=== PATIENT | female | born 1955 | race Caucasian/White ===

== ENCOUNTER → 2017-10-20 07:57 | Outpatient (CLI) | payer OTHER, SELFPAY ==
--- NOTE | 2017-10-20 08:00 | HPBI_ITS ---
MAMMOGRAPHY - BILATERAL SCREENING REASON FOR EXAM: Female, 62 years old. Routine annual screening examination. PERTINENT HISTORY: Non-contributory. TECHNIQUE: Digital bilateral breast zee (3D mammographic acquisition) in the CC and MLO projections. 2-D mediolateral oblique (MLO) and craniocaudad (CC) views of both breasts were obtained. CAD: Full Field Digital Mammography with Computer Added Detection was performed. COMPARISON: Comparison is made with prior study dated August 04, 2016 and July 28, 2015. FINDINGS: Breast Composition: There are scattered areas of fibroglandular density. There are no dominant masses or suspicious calcifications. No other significant abnormalities are identified. There has been no significant change since the prior study. HPBI/SCREENING MAMM (CAD), BILAT IMPRESSION: Stable bilateral screening mammogram. Yearly follow-up mammogram recommended. (A) ASSESSMENT CATEGORY: BIRADS Category 1: Negative. A letter regarding these results will be sent to the patient by the facility within 30 days. Approximately 10% of breast cancers are not detected by mammography. A normal mammogram should not delay biopsy of a clinically suspicious abnormality. [id number] Electronically Signed: Luke Marcus MD at 11:18 EST Tel [phone], Service support ,
== END ==
PROVIDERS: Family Provider Internal Medicine; PCP Internal Medicine; Visit Provider Internal Medicine
DX: Z12.31 Encounter for screening mammogram for malignant neoplasm of breast (principal)
CPT/HCPCS: 77063; 77067

== ENCOUNTER → 2018-03-21 07:19 | Outpatient (CLI) | payer OTHER, SELFPAY ==
[2018-03-21 13:58] LABS: Bacteria 0 SEEN /hpf (None Seen); Color, Urine Yellow (Yellow); Mucous, Urine 0 SEEN /hpf (<or=2+); Urine Clarity Clear (Clear); White Blood Cells 0 SEEN /hpf (0-5)
[2018-03-21 13:59] LABS: Glucose, Dipstick NEGATIVE (Normal); Ketone-Dipstick Negative (Negative); Leukocyte Esterase-Dipstick Negative /ul (Negative); Nitrite-Dipstick Negative (Negative); Occult Blood-Urine 10 /ul (Negative); Protein-Dipstick Negative (Negative); Specific Gravity, Urine 1.015 (1.002-1.030); Urine Bilirubin Dipstick Negative (Negative); Urine Urobilinogen Normal (Normal); Urine pH 6.5 (5.0 - 8.0)
[2018-03-21 14:05] LABS: Red Blood Cells-Urine 0-5 SEEN /hpf (0-5); Squamous Epithelial Cells - UA 0-5 SEEN /hpf (5-10)
== END ==
PROVIDERS: Family Provider Internal Medicine; PCP Internal Medicine; Visit Provider Internal Medicine
DX: Z90.5 Acquired absence of kidney (principal)
CPT/HCPCS: 81001

== ENCOUNTER 2018-07-06 08:00 | Outpatient (RCR) | payer OTHER, SELFPAY ==
--- NOTE | 2017-09-29 11:47 | MASS.EVAL_ITS ---
Massage Therapy Evaluation: The patient is a 62 year old female who is employed as a Registered Nurse at [employer]. She was referred for massotherapy with a diagnosis of Muscle strain, specific to the neck, low back and hips. She presents today with the symptoms of tension and aching through the neck, shoulders, low back and hips. She reports that the right hip is worse that the left hip. She states that the muscle tension is chronic and has been present for many years. She attributes the symptoms to the physical nature of her job. She denies any limitations to activities of daily living. She lists no medications. Goals: 1. Decrease hip pain 2. Decrease muscle tension 3. Promote relaxation Her first treatment consisted of a one hour massage to the full body focusing on the low back and hips. She had moderate tension throughout with a knot in the right paraspinals at approximately T8/9. She responded well to treatment reporting decreased muscle tension afterwards. I plan on seeing her 1 time per month for a total of 10 massages throughout 2018. Jazmin Cleaning LMT
--- NOTE | 2018-08-29 16:42 | DS.PCM_ITS ---
Massage Therapy Discharge Summary: Initial Evaluation: 09/29/2017 Diagnosis: Muscle strain No. of Visits: Date of last visit: 07/06/2018 Goals: Decreased hip pain Decreased overall muscle tension This patient is being discharged from our care at the [facility]. Thank you, Jazmin Cleaning LMT
== END 2018-07-06 19:00 | disposition home or self-care (01) ==
LOC: MASS 08:00
PROVIDERS: Family Provider Internal Medicine; PCP Internal Medicine; Visit Provider Internal Medicine
DX: S16.1XXD Strain of muscle, fascia and tendon at neck level, subsequent encounter (principal); S39.012D Strain of muscle, fascia and tendon of lower back, subsequent encounter
CPT/HCPCS: 97124

== ENCOUNTER → 2019-04-12 13:05 | Outpatient (CLI) | payer OTHER, SELFPAY ==
[2019-04-12 13:10] LABS: Bacteria 0 SEEN /hpf (None Seen); Mucous, Urine 0 SEEN /hpf (<or=2+); Red Blood Cells-Urine 0 SEEN /hpf (0-5)
[2019-04-12 13:23] LABS: Color, Urine Yellow (Yellow); Glucose, Dipstick Normal (Normal); Ketone-Dipstick Negative (Negative); Leukocyte Esterase-Dipstick Negative /ul (Negative); Nitrite-Dipstick Negative (Negative); Occult Blood-Urine Negative /ul (Negative); Protein-Dipstick Negative (Negative); Urine Bilirubin Dipstick Negative (Negative); Urine Clarity Clear (Clear); Urine Urobilinogen Normal (Normal)
[2019-04-12 13:57] LABS: Squamous Epithelial Cells - UA 0-5 SEEN /hpf (5-10); White Blood Cells 0-5 SEEN /hpf (0-5)
== END ==
PROVIDERS: Family Provider Internal Medicine; PCP Internal Medicine; Referring Provider Clinical Nurse Specialist; Visit Provider Clinical Nurse Specialist
DX: Z90.5 Acquired absence of kidney (principal)
CPT/HCPCS: 81001

== ENCOUNTER 2019-08-23 08:00 | Outpatient (RCR) | payer OTHER, SELFPAY ==
--- NOTE | 2019-08-29 09:22 | MASS.DISCH ---
Massage Therapy Discharge Summary: Initial Evaluation Date: 10/25/2018 Diagnosis: LBP, Osteoarthritis, arthralgia No. of Visits: Date of last visit: 08/23/2019 Goals: Patient reported decreased muscle tension and pain throughout treatment. This patient is being discharged from our care at the [facility]. Thank you, Jazmin Cleaning LMT
== END 2019-08-23 19:00 | disposition home or self-care (01) ==
LOC: MASS 08:00
PROVIDERS: Family Provider Internal Medicine; PCP Internal Medicine; Visit Provider Internal Medicine
DX: M25.559 Pain in unspecified hip (principal); M19.90 Unspecified osteoarthritis, unspecified site; M54.16 Radiculopathy, lumbar region; S39.012D Strain of muscle, fascia and tendon of lower back, subsequent encounter; S16.1XXD Strain of muscle, fascia and tendon at neck level, subsequent encounter
CPT/HCPCS: 97124

== ENCOUNTER → 2019-11-12 13:44 | Outpatient (CLI) | payer OTHER, SELFPAY ==
--- NOTE | 2019-11-12 13:52 | BI_ITS ---
MAMMOGRAPHY - BILATERAL SCREENING REASON FOR EXAM: Female, 64 years old. Routine annual screening examination. PERTINENT HISTORY: Non-contributory. TECHNIQUE: Digital bilateral breast silvia (3D mammographic acquisition) in the CC and MLO projections. 2-D mediolateral oblique (MLO) and craniocaudad (CC) views of both breasts were obtained. CAD: Full Field Digital Mammography with Computer Added Detection was performed. COMPARISON: Comparison is made with prior study dated October 20, 2017 and August 04, 2016. FINDINGS: Breast Composition: There are scattered areas of fibroglandular density. There are no dominant masses or suspicious calcifications. No other significant abnormalities are identified. There has been no significant change since the prior study. BI/SCREEN MAMM (CAD) W/SILVIA BILAT IMPRESSION: Stable bilateral screening mammogram. Yearly follow-up mammogram recommended. (A) ASSESSMENT CATEGORY: BIRADS Category 1: Negative. A letter regarding these results will be sent to the patient by the facility within 30 days. Approximately 10% of breast cancers are not detected by mammography. A normal mammogram should not delay biopsy of a clinically suspicious abnormality. [id number] Electronically Signed: Luke Marcus, at 14:57 EST , Service support ,
--- NOTE | 2019-11-12 14:21 | RAD_ITS ---
STUDY: X-RAY - LEFT KNEE REASON FOR EXAM: Left knee pain, no specific injury. TECHNIQUE: 4 view(s) of the knee. COMPARISON: Radiographs 10/24/2011. FINDINGS: Normal visualized distal femur. There is a small osteochondroma of the posterior aspect of the proximal fibular diametaphysis unchanged since the prior study. Normal proximal tibiofibular articulation. There is moderate joint space narrowing of the medial femorotibial compartment, increased since the prior study. Normal lateral femorotibial compartment. Normal patellofemoral articulation. The soft tissue structures are unremarkable. RAD/Knee 4 or More Views IMPRESSION: Arthrosis of the medial femorotibial compartment. Small osteochondroma of the proximal fibula. Electronically Signed: Sudheer Irene MD at 14:57 EST Tel , Service support ,
== END ==
PROVIDERS: PCP Internal Medicine; Referring Provider Internal Medicine; Visit Provider Internal Medicine
DX: Z12.31 Encounter for screening mammogram for malignant neoplasm of breast (principal); M25.562 Pain in left knee
CPT/HCPCS: 73564; 77063; 77067

== ENCOUNTER 2019-11-16 07:53 | Day surgery (SDC) | payer OTHER, SELFPAY ==
--- NOTE | 2019-10-31 07:12 | RAD_ITS ---
STUDY: X-RAY - LEFT FOOT CLINICAL: Female, 64 years old. Bursitis lt foot -- pre-op for bunionectomy TECHNIQUE: 3 view(s) of the foot. COMPARISON: Comparison is made with prior examination dated March 27, 2016. FINDINGS: Normal talus, calcaneus, and tarsal bones. Normal visualized subtalar, talonavicular, calcaneocuboid, tarsal and tarsometatarsal articulations. Normal metatarsi. There is degenerative arthrosis of the metatarsophalangeal joint of the hallux . Normal tibial and fibular sesamoid bones. Normal interphalangeal joint of the great toe. Normal phalanges of the great toe. Normal second through fifth metatarsophalangeal joints. Normal interphalangeal joints and phalanges of the lesser toes. Soft tissue swelling overlying the first metatarsal phalangeal joint. RAD/Foot min 3 Views IMPRESSION: Degenerative changes at the first metatarsophalangeal joint with mild overlying soft tissue swelling. Electronically Signed: Luke Marcus, at 8:54 EST , Service support ,
[2019-10-31 07:19] LABS: Hematocrit 43.7 % (37-47); Hemoglobin 14.3 g/dL (12.0-15.0); Mean Corp Hgb Conc 32.7 g/dL (32-36); Mean Corpuscular Hgb 29.9 pg (27.0-32.0); Mean Corpuscular Volume 91.2 fL (81-99); Mean Platelet Vol. 9.3 fl (6.2-12.0); Platelet Count 225 K/mm3 (150-450); RBC Distribution Width CV 12.5 % (11.6-14.6); Red Blood Count 4.79 M/mm3 (4.2-5.4); White Blood Count 6.1 K/mm3 (4.4-11.0)
[2019-10-31 07:48] LABS: ALB/GLOB Ratio 1.1 RATIO (0.9-2.4); AST(SGOT) 19 U/L (15-37); Alanine Aminotransfer ALT/SGPT 28 U/L (13-56); Albumin, Serum 3.8 g/dL (3.2-5.0); Alkaline Phosphatase 64 U/L (45-117); Anion Gap 3 (5-15); BUN 22 mg/dL (7-18); BUN/Creat Ratio 25.6 RATIO (10-20); Chloride 109 mmol/L (98-107); Cholesterol 146 mg/dL (200); Creatinine, Serum 0.86 mg/dL (0.55-1.02); EST Glomerular Filtration Rate 70 mL/min (>60); Est Glom Filt Rate - Afr Amer 85 mL/min (>60); Globulin 3.5 g/dL (2.2-4.2); Glucose 94 mg/dL (74-106); High Density Lipoprotein 38 mg/dL; Potassium 4.4 mmol/L (3.5-5.1); Protein, Total 7.3 g/dL (6.4-8.2); Sodium Level 143 mmol/L (136-145); Triglycerides 183 mg/dL; Very Low Density Lipoprotein 37 mg/dL (5-40)
[2019-11-16] VITALS (8 sets, daily range): BP systolic 102–138; BP diastolic 83–97; PULSE 70–84; RESP 16–18; TEMP 36.2–36.7; O2SAT 95–100; BMI 29.1
--- NOTE | 2019-11-16 | BON_PTH ---
PATIENT: JACOB MARIE LOC: [facility] [place] U#:[id number] AGE/SX: 64/F ROOM: RE11/16/[address]: Dr. Berlin Fitzgerald DPM : 1955 BED: DIS: 11/16/2019 SPEC #: [id number] RECD: 11/16/19 13:30 STATUS: MELISSA BONNIE #: [id number] VERONICA: 11/16/19 00:[address]: Berlin Fitzgerald DEPT: SURGICAL PATHOLOGY RECD BY: Michael Sahu ENTERED: 11/16/19 13:31 SP TYPE: Bone OTHR DR: MD Mireya English, TEAM TRUCK DRIVER-C Tissues: A - Bone of foot, NOS B - Bone of foot, NOS Procedures: Decalcification bone/plaque Surgery Specimen Level IV HEADER OPERATION: First metatarsophalangeal joint cheilectomy arthroplasty PRE-OP DIAGNOSIS: Tailors bunion, bunion first toe with osteoarthritis and bone spur, limited motion first toe TISSUE SUBMITTED: A - Tailors bunion left foot, B - First metatarsal phalanx left foot MICROSCOPIC DIAGNOSIS A. Asya cheung, left foot, excision: Osseocartilaginous tissue with no significant pathologic change (clinically bunion). B. First metatarsal phalanx, left foot, biopsy: Chronic reparative and reactive change. No evidence of acute osteomyelitis. Focal degenerative change. AM:beverley 11/21/19 MICROSCOPIC DESCRIPTION Slides are reviewed. GROSS DESCRIPTION A - Received in fixative is one container labeled with the patient's name and designated asya cheung left foot. The specimen consists of multiple fragments of bone that in aggregate measure 2 x 1 x 0.3 cm. The specimen is totally submitted in one cassette after decalcification. B - Received in fixative is one container labeled with the patient's name and designated first metatarsal phalanx left foot. The specimen consists of two pieces of bone measuring in aggregate 2.5 x 2 x 0.3 cm. The entire specimen is submitted in one cassette after decalcification. / SJ:beverley 11/16/19 TC:5 CPT: 01405 x2, 68816 x2
[2019-11-16] MEDS: Lactated Ringers 1,000 ML 100 ML IV (08:40)
--- NOTE | 2019-11-16 09:28 | DCINST_ITS ---
Discharge Diet: Light diet - advance as tolerated Discharge Activity: Use Crutches Weight Bearing Status: No weight bearing - No weightbearing on ball or toes of left foot Keep extremity elevated above heart level: Left Leg - Keep left foot elevated for at least 50 minutes of every hour Call your doctor if your incision/area has: Continuous Slow Oozing, Sudden Increased Bleeding, Foul Smelling Discharge Call your doctor if you observe: Fever of 101 or Higher, Shortness of breath, Chest pain, Calf discomfort, Uncontrolled pain Cleanse incision/area with: Do not get Incision Wet, Keep Dressing Clean & Dry Allergies/Adverse Reactions: Allergies fentanyl Adverse Reaction (Verified 11/16/19 08:27) Nausea Medications to take at Discharge Albuterol Inhaler [Ventolin Hfa (SP)] 1 - 2 puff INHALATION Q4H PRN PRN 08/19/15 Ascorbic Acid [Vitamin C with Stephanie Hips] 500 mg PO DAILY 11/09/19 Atorvastatin Calcium [Lipitor] 10 mg PO QHS 11/09/19 Cetirizine HCl [Zyrtec] 10 mg PO PRN PRN 11/09/19 Glucosam/Akil-Msm1/C/Rito/Bosw [Osteo Bi-Flex Caplet] 1 ea PO DAILY 11/09/19 Krill/Om-3/Dha/Epa/Phospho/Ast [Megared [place]-3 Krill Oil Sfgl] 1 ea PO DAILY 11/09/19 Mv-Mn/Folic AC/Calcium/Vit K1 [Women's 50 Plus Multivit Tab] 1 ea PO DAILY 11/09/19 Panax, Scottish Ginsg/B12/Royl [Ginseng Complex Capsule] 1 ea PO DAILY 11/09/19 Turmeric 400 mg PO DAILY 11/09/19 Hydrocodone/Acetaminophen [[place] 5-325 Tablet] 1 - 2 each PO Q6H PRN PRN #20 tablet 11/16/19 The following prescriptions were given: Hydrocodone/Acetaminophen [[place] 5-325 Tablet] 1 - 2 each PO Q6H PRN PRN #20 tablet PRN Reason: Pain Score 1-10/10 Transmission Status: Sent to [facility] Primary Care Physician: Isamar Bedoya MD [Primary Care Provider] - Test Results: Test results from this visit will be discussed in further detail at your follow- up appointment, if applicable. Please Follow Up With: Berlin Fitzgerald DPM - Call Dr. Fitzgerald if needed, (cell), [phone] (office) When: 1 week, sooner if needed
--- NOTE | 2019-11-16 09:30 | RAD_ITS ---
STUDY: X-RAY - LEFT FOOT CLINICAL: Female, 64 years old. 1ST MPJ CHEILECTOMY, ETC. IN O.R. 3 IMAGES, 6 SEC. FL. TECHNIQUE: 3C-arm view(s) of the foot. 6 seconds fluoroscopy time. COMPARISON: 10/31/2019 FINDINGS: These limited field of view images show postoperative changes of the head of the fifth metatarsal. Correlate with procedure note. Electronically Signed: Sea Thompson MD at 15:03 EST , Service support , RAD/Foot min 3 Views
--- NOTE | 2019-11-16 09:30 | OP.PCM_ITS ---
Report of Operation Date of Procedure: 11/16/19 Pre-Operative Diagnosis: Bunion 1st toe w/ osteoarthritis and spurring 1st metatarsal phalangeal joint left foot. Tailor's bunion, left Post-Operative Diagnosis: Same Surgery/Procedure Performed:: 1st metatarsal phalangeal joint cheilectomy buionectomy, left. Tailor's bunionectomy, left financial economist: yes - Dr. Sana Choi financial economist: yes - Dr. Michael Flowers Type of Anesthesia:: Local MAC Specimen's removed: Bunion/bone from 1st metatarsal phalangeal joint, left. Tailor's bunion, left - both sent to pathology Estimated Blood Loss (mL): 1mL Description of Procedure: Indications: This is a 64 year old female with painful left 1st metatarsal phalagneal joint (MTPJ) due to osteoarthritis w/ hallux limitus/ridigus, as well as painful Tailor's bunion. Patient has pain and significantly limited range of motion. Osteoarthritis was seen on xrays of the foot to the 1st MTPJ, and Tailor's bunion noted. This has been treated with extensive conservative/nonsurgical management, but symptoms persists and she continues to have pain and symptoms. She elected to undergo surgery. We discussed the procedure options, and we are planning to proceed with 1st MTPJ cheilectomy arthroplasty as well as simple Tailor's bunionectomy. We reviewed the rationale of this as well as the possible benefits, risks, potential complications goals and expectations of each. This was discussed with her in great detail. Typical post op recovery was reviewed with her. She expressed understanding and agreement. The consent forms were reviewed with her in detail, and she freely signed them. No guarantees were given nor implied. All of her questions were answered. Patient was medically cleared. Operative Procedure: The patient was brought back into the operating room and was placed on the operating room table in the supine position. She was carefully secured to the operating room table with a safety belt around her waist. A time out was performed and the patient was properly identified and the surgical plan was confirmed. The patient received 2 grams of IV Ancef for antibiotic prophylax is. A well padded pneumatic tourniquet was applied around the left ankle. The patient did receive general anesthesia per the anesthesiologist. The skin was cleansed with 70% Isopropyl alcohol, and 20mL of 0.5% Bupivacaine plain was given as a 1st ray and 5th ray block on the left foot. The left foot was scrubbed, prepped, draped in the usual aseptic fashion. A timeout was performed and the patient was properly identified and the surgical plan was confirmed. The left foot was elevated for 3 minutes and the left ankle pneumatic tourniquet was inflated to 250mmHg. Left 1st metatarsal phalangeal joint cheilectomy arthroplasty: Attention was directed to the left 1st MTPJ. There as noted to be significant limited range of motion present, with grinding and dorsal jamming consistent with significant hallux rigidus and osteoarthritis. A linear longitudinal skin incision was made overlying the dorsal medial 1st MTPJ, medial to the Extensor Hallucis Longus tendon using a 15 scalpel blade. Careful dissection was completed down through the subcutaneous tissue layer, down to the 1st MTPJ capsule, which was incised with a 15 scalpel blade. The 1st MTPJ capsule was partially reflected exposing the dorsal aspect of the 1st metatarsal head and base of the hallux proximal phalanx. There were osteophytes around the dorsal 1st metatarsal head as well as the dorsal aspect of the base of the hallux proximal phalanx. The was a dorsal and medial eminence present to the 1st metatarsal head. The cartilage on the dorsal one third to one half of the 1st metatarsal head was severely worn away and unhealthy. There was a large osteochondral lesion to the dorsal central 1st metatarsal head, there was noted to be diffuse global thinning and wearing away of cartilage present. There were significant adhesions of the sesamoid apparatus. The adhesions of the sesamoid apparatus were freed up using a McGlamry elevator. Using a powered sagittal saw the dorsal and medial eminences, as well as the dorsal one third to one half 1st metatarsal head was resected - the osteochondral defect was resected in this process. The dorsal aspect of the base of the hallux proximal phalanx was resected with the powered sagittal saw. This was sent to pathology for further evaluation. All osteophytes were resected from the 1st metatarsal head and from the base of the hallux proximal phalanx using a bone cutting rongeur - these were sent to pathology with the specimen. Proper resection was confirmed using intra operative fluoroscopy, without the use of a equine pharmacology technician. At this time the 1st MTPJ was put through range of motion and it was gliding normally and smoothly, with no impingement or crepitus present, there was 90 degrees of 1st metatarsal phalangeal joint dorsiflexion, confirmed with fluoroscopy. There was no popping or catching present with range of motion. The site was flushed out with copious amounts of normal saline solution. The joint capsule was reapproximated in neutral position using 4-0 Delonte ryl, the subcutaneous tissue layer was reapproximated using 4-0 Vicryl, the skin was reapproximated using 4-0 Monocryl. Tailor's Bunionectomy, left: Attention was directed to the lateral foot where there was a large tailor's bunion. A linear longitudinal skin incision was made overlying the dorsal 5th metatarsal phalangeal joint lateral to the extensor tendons using a 15 scalpel blade. Dissection was completed down to the 5th metatarsal joint capsule where an incision was made using a 15 scalpel blade. The capsule was partially reflected exposing the 5th metatarsal head where there was noted to be a lateral eminence. The lateral eminence bunion was resected using a powered sagittal saw and the resected bone was sent to pathology as specimen. This was confirmed with intra operative fluoroscopy. The remainder of the site was viable and healthy. The site was again flushed out with copious amounts of normal saline solution. The capsule and subcuatneous tissue was reapproximated using 4-0 Vicryl. The skin was reapproximated using 4-0 Monocryl. Cavilon was painted to the sutured skin edges and steristrips were applied across the sutured skin incision. All vital structure, including all vital neurovascular structures were properly identified and protected as necessary throughout the procedure. The pneumatic tourniquet was deflated (total tourniquet time was 37 minutes), there was immediate return of vascular flow to the foot and all toes. CFT < 2 seconds to all toes, and had normal temperature gradient present with no evidence of ischemia. Hemostasis was achieved. A dressing was applied which consisted of Betadine soaked adaptic, 4x4 gauze, Kerlix and stephanie dressing to the left foot. The patient tolerated the above operative procedure well at the anesthesia well with no complications. The patient was transported to the recovery room with vital signs stable and in good condition. Post operative orders were placed. Post operative instructions were reviewed with patient today, as well as with her daugther. No weightbearing left foot, keep left foot elevated for at least 50 minutes of every hour, keep dressing clean, dry and intact to foot. Prescription for Goodrich was prescribed: 1-2 tabs PO q 6 hours PRN pain for pain control She was dispensed a surgical shoe. Post operative xrays were obtained in the recovery room which confirmed 1st MTPJ cheilectomy arthroplasty and simple Tailor's bunionectomy. No post operative complications and otherwise no acute changes and stable xrays. Grafts/Implants Used: None - Complications None
[2019-11-16] MEDS: Cefazolin 2 GM in 0.9% Normal Saline 100 ML IV (09:32)
[2019-11-16] MEDS: Bupivacaine Mpf 0.5% 30 ML VIAL (10:00)
--- NOTE | 2019-11-16 10:38 | RAD_ITS ---
STUDY: X-RAY - LEFT FOOT CLINICAL: Female, 64 years old. Post op TECHNIQUE: 3 view(s) of the foot. COMPARISON: 10/31/2019. FINDINGS: Status post osteotomy of the lateral portion of the head of the fifth metatarsal. Possible osteotomy along the medial surface of the head of the first metatarsal. No other changes or abnormalities. Normal visualized subtalar, talonavicular, calcaneocuboid, tarsal and tarsometatarsal articulations. Normal metatarsophalangeal joint of the great toe. Normal tibial and fibular sesamoid bones. Normal interphalangeal joint of the great toe. Normal phalanges of the great toe. Normal second through fifth metatarsophalangeal joints. Normal interphalangeal joints and phalanges of the lesser toes. Small amount of air in the soft tissues of the surgical beds. RAD/Foot min 3 Views IMPRESSION: Postoperative changes with no acute abnormality. Electronically Signed: Sea Thompson MD at 15:06 EST , Service support ,
== END 2019-11-16 12:06 | disposition home or self-care (01) ==
LOC: SDC 07:53 → AC 07:54
PROVIDERS: Clinical Nurse Specialist; PCP Internal Medicine; Referring Provider Internal Medicine; Visit Provider Podiatrist
PROC: (CPT 28110; principal; 2019-11-16 09:15)
DX: M21.622 Bunionette of left foot (principal); M19.072 Primary osteoarthritis, left ankle and foot; K21.9 Gastro-esophageal reflux disease without esophagitis; Z79.899 Other long term (current) drug therapy; J45.909 Unspecified asthma, uncomplicated; E78.5 Hyperlipidemia, unspecified; Z90.5 Acquired absence of kidney; M21.612 Bunion of left foot
CPT/HCPCS: 01480; 28110; 28296; 36415; 73630; 76000; 80053; 80061; 85027; 88304; 88305; 88311; J7120

== ENCOUNTER → 2020-01-22 12:15 | Outpatient (CLI) | payer OTHER, SELFPAY ==
[2019-11-16 08:23] VITALS: BMI 29.1
--- NOTE | 2020-01-22 12:19 | RAD_ITS ---
STUDY: X-RAY - RIGHT FOOT CLINICAL: Female, 64 years old. PRE BUNION SURGERY TECHNIQUE: 3 view(s) of the foot. COMPARISON: None. FINDINGS: Normal talus, calcaneus, and tarsal bones. Normal visualized subtalar, talonavicular, calcaneocuboid, tarsal and tarsometatarsal articulations. Subluxation of the fifth metatarsophalangeal joint with varus positioning of the fifth metatarsal and prominence of the lateral fifth metatarsal head. Otherwise normal metatarsi. There is degenerative arthrosis of the metatarsophalangeal joint of the hallux . Normal tibial and fibular sesamoid bones. Normal interphalangeal joint of the great toe. Normal phalanges of the great toe. Normal second through fifth metatarsophalangeal joints. Normal interphalangeal joints and phalanges of the lesser toes. The soft tissue structures are unremarkable. There is no demonstrated fracture. RAD/Foot min 3 Views IMPRESSION: Mild to moderate degenerative changes of the first metatarsal phalangeal joint. There is angulation of the fifth metatarsal with some subluxation of the fifth metatarsophalangeal joint. Electronically Signed: Sea Thompson MD at 13:01 EDT , Service support ,
== END ==
PROVIDERS: PCP Internal Medicine; Referring Provider Podiatrist; Visit Provider Podiatrist
DX: M21.611 Bunion of right foot (principal)
CPT/HCPCS: 73630

== ENCOUNTER 2020-02-08 06:02 | Day surgery (SDC) | payer OTHER, SELFPAY ==
[2019-11-16 08:23] VITALS: BMI 29.1
[2020-02-01 13:45] LABS: Hematocrit 42.6 % (37-47); Hemoglobin 13.8 g/dL (12.0-15.0); Mean Corp Hgb Conc 32.4 g/dL (32-36); Mean Corpuscular Hgb 29.6 pg (27.0-32.0); Mean Corpuscular Volume 91.4 fL (81-99); Mean Platelet Vol. 9.6 fl (6.2-12.0); Platelet Count 244 K/mm3 (150-450); RBC Distribution Width CV 13.2 % (11.6-14.6); RBC Distribution Width SD 44.1 fl (35.1-43.9); Red Blood Count 4.66 M/mm3 (4.2-5.4); White Blood Count 7.3 K/mm3 (4.4-11.0)
[2020-02-01 14:02] LABS: ALB/GLOB Ratio 1.2 RATIO (0.9-2.4); AST(SGOT) 19 U/L (15-37); Alanine Aminotransfer ALT/SGPT 26 U/L (13-56); Albumin, Serum 3.9 g/dL (3.2-5.0); Alkaline Phosphatase 66 U/L (45-117); Anion Gap 4 (5-15); BUN 14 mg/dL (7-18); Calcium,Total 9.3 mg/dL (8.5-10.1); Chloride 109 mmol/L (98-107); Creatinine, Serum 0.74 mg/dL (0.55-1.02); EST Glomerular Filtration Rate 84 mL/min (>60); Est Glom Filt Rate - Afr Amer 102 mL/min (>60); Globulin 3.2 g/dL (2.2-4.2); Glucose 95 mg/dL (74-106); Potassium 4.3 mmol/L (3.5-5.1); Protein, Total 7.1 g/dL (6.4-8.2); Sodium Level 141 mmol/L (136-145)
--- NOTE | 2020-02-07 | BUN_PTH ---
PATIENT: JACOB MARIE LOC: [facility] [place] U#:[id number] AGE/SX: 64/F ROOM: RE02/08/[address]: Dr. Berlin Fitzgerald DPM : 1955 BED: DIS: 02/08/2020 SPEC #: [id number] RECD: 02/08/20 09:40 STATUS: MELISSA BONNIE #: [id number] VERONICA: 02/07/20 00:[address]: Berlin Fitzgerald DEPT: SURGICAL PATHOLOGY RECD BY: Michael Sahu ENTERED: 02/08/20 10:57 SP TYPE: BUNION OTHR DR: Dr. Isamar Bedoya MD Tissues: Bony tissue, NOS Procedures: Decalcification bone/plaque Surgery Specimen Level III HEADER OPERATION: Arthroplasty first toe PRE-OP DIAGNOSIS: Tailor's bunion; osteoarthritis TISSUE SUBMITTED: Bunion right foot, first and fifth metatarsal MICROSCOPIC DIAGNOSIS Bunion right foot, first and fifth metatarsal: Pieces of bone with degenerative and reactive changes, clinically skye right foot. GUALBERTO:beverley 02/21/20 MICROSCOPIC DESCRIPTION Slides are reviewed. GROSS DESCRIPTION Received in fixative is one container labeled with the patient's name and designated skye right foot, first and fifth metatarsal. The specimen consists of multiple fragments of bone that in aggregate measure 3.5 x 2.5 x 0.4 cm. The entire specimen is submitted in two cassettes after decalcification. / GUALBERTO:beverley 02/08/20 TC:5 CPT: 94597, 65481
[2020-02-08 06:20] VITALS: BP 130/83; PULSE 78; RESP 18; TEMP 37; O2SAT 96; BMI 29.4
[2020-02-08] MEDS: Lactated Ringers 1,000 ML 100 ML IV (06:45)
--- NOTE | 2020-02-08 07:30 | RAD_ITS ---
STUDY: X-RAY RIGHT FOOT, GREAT TOE REASON FOR EXAM: Arthroplasty of the first metatarsophalangeal joint. TECHNIQUE: 3 fluoroscopic images of the toe were obtained. COMPARISON: Radiographs 01/22/2020. FINDINGS: There are postoperative changes of the first and fifth metatarsal heads and joint space narrowing of the first metatarsophalangeal joint. 6 seconds of fluoroscopy time was used. Electronically Signed: Sudheer Irene MD at 12:12 EDT Tel , Service support , RAD/Toe(s) Min 2 Views
[2020-02-08] MEDS: Cefazolin 2 GM in 0.9% Normal Saline 100 ML IV (07:31)
[2020-02-08] MEDS: Bupivacaine Mpf 0.5% 30 ML VIAL (07:45)
--- NOTE | 2020-02-08 08:29 | PCM.OPRPT ---
Report of Operation Date of Procedure: 02/08/20 Pre-Operative Diagnosis: Tailor's bunion right foot. 1st metatarsal phalangeal joint osteoarthritis bunion, right Post-Operative Diagnosis: Same Surgery/Procedure Performed:: Tailor's bunionectomy, right. 1st metatarsal phalangeal joint cheilectomy arthroplasty bunionectomy, right cider maker: Bentely Ovalle Type of Anesthesia:: Local MAC Specimen's removed: Bunion from 1st and 5th metatarsals right Estimated Blood Loss (mL): 1mL Description of Procedure: Indications: This is a 64 year old female with painful right 1st metatarsal phalagneal joint (MTPJ) due to osteoarthritis w/ hallux limitus/ridigus bunion, as well as painful Tailor's bunion. Patient has pain and significantly limited range of motion. Osteoarthritis was seen on xrays of the foot to the 1st MTPJ, and Tailor's bunion noted. This has been treated with extensive conservative/nonsurgical management, but symptoms persists and she continues to have pain and symptoms. She elected to undergo surgery. We discussed the procedure options, and we are planning to proceed with 1st MTPJ cheilectomy arthroplasty as well as simple Tailor's bunionectomy. We reviewed the rationale of this as well as the possible benefits, risks, potential complications goals and expectations of each. This was discussed with her in great detail. Typical post op recovery was reviewed with her. She expressed understanding and agreement. The consent forms were reviewed with her in detail, and she freely signed them. No guarantees were given nor implied. All of her questions were answered. Patient was medically cleared. Operative Procedure: The patient was brought back into the operating room and was placed on the operating room table in the supine position. She was carefully secured to the operating room table with a safety belt around her waist. A time out was performed and the patient was properly identified and the surgical plan was confirmed. The patient received 2 grams of IV Ancef for antibiotic prophylaxis. A well padded pneumatic tourniquet was applied around the right ankle. The patient did receive MAC anesthesia per the anesthesiologist. The skin was cleansed with 70% Isopropyl alcohol, and 10mL of 0.5% Bupivacaine plain was given as a 1st ray and 5th ray block on the right foot. The right foot was scrubbed, prepped, draped in the usual aseptic fashion. A timeout was performed and the patient was properly identified and the surgical plan was confirmed. The left foot was elevated for 3 minutes and the left ankle pneumatic tourniquet was inflated to 250mmHg. Right 1st metatarsal phalangeal joint cheilectomy arthroplasty: Attention was directed to the left 1st MTPJ. There as noted to be significant limited range of motion present, with grinding and dorsal jamming consistent with significant hallux rigidus and osteoarthritis. A linear longitudinal skin incision was made overlying the dorsal medial 1st MTPJ, medial to the Extensor Hallucis Longus tendon using a 15 scalpel blade. Careful dissection was completed down through the subcutaneous tissue layer, down to the 1st MTPJ capsule, which was incised with a 15 scalpel blade. The 1st MTPJ capsule was partially reflected exposing the dorsal aspect of the 1st metatarsal head and base of the hallux proximal phalanx. There were osteophytes around the dorsal 1st metatarsal head as well as the dorsal aspect of the base of the hallux proximal phalanx. The was a dorsal and medial eminence present to the 1st metatarsal head. The cartilage on the dorsal one third to one half of the 1st metatarsal head was severely worn away and unhealthy. There was a large osteochondral lesion to the dorsal central 1st metatarsal head, there was noted to be diffuse global thinning and wearing away of cartilage present. There were significant adhesions of the sesamoid apparatus. The adhesions of the sesamoid apparatus were freed up using a McGlamry elevator. Using a powered sagittal saw the dorsal and medial eminences, as well as the dorsal one third to one half 1st metatarsal head was resected - the osteochondral defect was resected in this process. The dorsal aspect of the base of the hallux proximal phalanx was resected with the powered sagittal saw. This was sent to pathology for further evaluation. All osteophytes were resected from the 1st metatarsal head and from the base of the hallux proximal phalanx using a bone cutting rongeur - these were sent to pathology with the specimen. Proper resection was confirmed using intra operative fluoroscopy, without the use of a lead based paint technician. At this time the 1st MTPJ was put through range of motion and it was gliding normally and smoothly, with no impingement or crepitus present, there was 90 degrees of 1st metatarsal phalangeal joint dorsiflexion, confirmed with fluoroscopy. There was no popping or catching present with range of motion. The site was flushed out with copious amounts of normal saline solution. The joint capsule was reapproximated in neutral position using 4-0 Vicryl, the subcutaneous tissue layer was reapproximated using 4-0 Vicryl, the skin was reapproximated using 4-0 Monocryl. Tailor's Bunionectomy, right: Attention was directed to the lateral foot where there was a large tailor's bunion. A linear longitudinal skin incision was made overlying the dorsal 5th metatarsal phalangeal joint lateral to the extensor tendons using a 15 scalpel blade. Dissection was completed down to the 5th metatarsal joint capsule where an incision was made using a 15 scalpel blade. The capsule was partially reflected exposing the 5th metatarsal head where there was noted to be a lateral eminence. The lateral eminence bunion was resected using a powered sagittal saw and the resected bone was sent to pathology as specimen. This was confirmed with intra operative fluoroscopy. The remainder of the site was viable and healthy. The site was again flushed out with copious amounts of normal saline solution. The capsule and subcutaneous tissue was reapproximated using 4-0 Vicryl. The skin was reapproximated using 4-0 Monocryl. All vital structure, including all vital neurovascular structures were properly identified and protected as necessary throughout the procedure. The pneumatic tourniquet was deflated (total tourniquet time was 39 minutes), there was immediate return of vascular flow to the foot and all toes. CFT < 2 seconds to all toes, and had normal temperature gradient present with no evidence of ischemia. Hemostasis was achieved. A dressing was applied which consisted of Betadine soaked adaptic, 4x4 gauze, Kerlix and stephanie dressing to the right foot. The patient tolerated the above operative procedure well at the anesthesia well with no complications. The patient was transported to the recovery room with vital signs stable and in good condition. Post operative orders were placed. Post operative instructions were reviewed with patient today, as well as with her daughter. No weightbearing right foot, keep left foot elevated for at least 50 minutes of every hour, keep dressing clean, dry and intact to foot. Prescription for [place] was prescribed: 1-2 tabs PO q 6 hours PRN pain for pain control. She already has a surgical shoe. Post operative xrays were obtained in the recovery room which confirmed 1st MTPJ cheilectomy arthroplasty and simple Tailor's bunionectomy. No post operative complications and otherwise no acute changes and stable xrays. Grafts/Implants Used: None - Complications None
[2020-02-08 08:35] VITALS: BP 110/74; BP 130/83; PULSE 92; RESP 18; TEMP 36.4; O2SAT 94
--- NOTE | 2020-02-08 08:36 | PCM.DC.POD ---
Discharge Diet: Light diet - advance as tolerated Discharge Activity: May Not Drive, Use Crutches Weight Bearing Status: No weight bearing - No weightbearing right foot Keep extremity elevated above heart level: Right Leg - Keep right foot elevated for at least 50 minutes of every hour Call your doctor if your incision/area has: Continuous Slow Oozing, Sudden Increased Bleeding, Foul Smelling Discharge Call your doctor if you observe: Fever of 101 or Higher, Shortness of breath, Chest pain, Calf discomfort, Uncontrolled pain Cleanse incision/area with: Do not get Incision Wet, Keep Dressing Clean & Dry Allergies/Adverse Reactions: Allergies fentanyl Adverse Reaction (Verified 02/01/20 13:10) Nausea Medications to take at Discharge Albuterol Inhaler [Ventolin Hfa (SP)] 1 - 2 puff INHALATION Q4H PRN PRN 08/19/15 Ascorbic Acid [Vitamin C with Stephanie Hips] 500 mg PO DAILY 11/09/19 Atorvastatin Calcium [Lipitor] 10 mg PO QHS 11/09/19 Cetirizine HCl [Zyrtec] 10 mg PO PRN PRN 11/09/19 Mv-Mn/Folic AC/Calcium/Vit K1 [Women's 50 Plus Multivit Tab] 1 ea PO DAILY 11/09/19 Panax, Syrian Ginsg/B12/Royl [Ginseng Complex Capsule] 1 ea PO DAILY 11/09/19 Turmeric 400 mg PO DAILY 11/09/19 Calcium Carbonate [Tums] 500 mg PO DAILY@0800 PRN 02/01/20 Hydrocodone Bitart/Apap 5-325 [Glen 5MG-325MG] 1 - 2 tab PO Q6H PRN PRN 4 Days #30 tab 02/08/20 The following prescriptions were given: Hydrocodone Bitart/Apap 5-325 [Glen 5MG-325MG] 1 - 2 tab PO Q6H PRN PRN 4 Days #30 tab PRN Reason: Pain Transmission Status: Received by [facility] Primary Care Physician: Isamar Bedoya MD [Primary Care Provider] - Test Results: Test results from this visit will be discussed in further detail at your follow-up appointment, if applicable. Please Follow Up With: Berlin Fitzgerald DPM When: 1 week, sooner if needed
[2020-02-08 08:40] VITALS: BP 114/80; BP 130/83; PULSE 90; RESP 18; O2SAT 94
[2020-02-08 08:45] VITALS: BP 113/85; BP 130/83; PULSE 80; RESP 18; O2SAT 94
--- NOTE | 2020-02-08 08:46 | RAD_ITS ---
STUDY: X-RAY - RIGHT FOOT CLINICAL: Female, 64 years old. POST OP RIGHT 1ST METATARSAL PHALANGEAL JOINT ARTHROPLASTY TECHNIQUE: 3 view(s) of the foot. COMPARISON: January 22, 2020 FINDINGS: Normal talus, calcaneus, and tarsal bones. Normal visualized subtalar, talonavicular, calcaneocuboid, tarsal and tarsometatarsal articulations. Postoperative changes of osteotomy of the head of the first and fifth metatarsals. There is air in the soft tissues consistent with recent postoperative status. There is arthrosis of the metatarsophalangeal joint of the hallux . Normal tibial and fibular sesamoid bones. Normal interphalangeal joint of the great toe. Normal phalanges of the great toe. Normal second through fifth metatarsophalangeal joints. Normal interphalangeal joints and phalanges of the lesser toes. RAD/Foot min 3 Views IMPRESSION: Postoperative change. Electronically Signed: Wilman Ware MD at 9:14 EDT , Service support ,
[2020-02-08 08:50] VITALS: BP 124/81; BP 130/83; PULSE 74; RESP 18; TEMP 36.3; O2SAT 97
[2020-02-08 09:31] VITALS: BP 122/89; BP 130/83; PULSE 68; RESP 16; TEMP 36.3; O2SAT 96
== END 2020-02-08 09:33 | disposition home or self-care (01) ==
LOC: SDC 06:03 → AC 06:03
PROVIDERS: PCP Internal Medicine; Referring Provider Podiatrist; Visit Provider Podiatrist
PROC: (CPT 28110; principal; 2020-02-08 07:15)
DX: M21.621 Bunionette of right foot (principal); M19.071 Primary osteoarthritis, right ankle and foot; Z79.899 Other long term (current) drug therapy; J45.909 Unspecified asthma, uncomplicated; E78.5 Hyperlipidemia, unspecified; Z11.59 Encounter for screening for other viral diseases
CPT/HCPCS: 28110; 28296; 36415; 73630; 73660; 76000; 80053; 85027; 87635; 88304; 88311; G2023; J7120; U0004

== ENCOUNTER 2020-04-10 14:30 | Outpatient (RCR) | payer OTHER, SELFPAY ==
--- NOTE | 2019-10-11 11:37 | MASS.EVAL ---
Massage Therapy Evaluation: Initial Evaluation Date: 10/11/2019 /Age: 06 1955, 64 Diagnosis: LBP, Osteoarthritis, Joint Pain Goals: Decrease pain Decrease muscle tension Promote relaxation Assessment: Tasia is a good candidate for massage therapy. We have had success treating her symptoms in the past. Plan: The patient is to be seen as needed for a total of 10 treatments.
--- NOTE | 2020-08-28 09:05 | MASS.DISCH ---
Massage Therapy Discharge Summary: Initial Evaluation Date: 10/11/2019 Diagnosis: LBP, Osteoarthritis, Joint Pain No. of Visits: 5 Date of last visit: 04/10/2020 This patient is being discharged from our care at the [facility]. Thank you, Jazmin Cleaning LMT
== END 2020-04-10 19:00 | disposition home or self-care (01) ==
LOC: MASS 14:30
PROVIDERS: Family Provider Internal Medicine; PCP Internal Medicine; Referring Provider Internal Medicine; Visit Provider Internal Medicine
DX: M25.559 Pain in unspecified hip (principal); M19.90 Unspecified osteoarthritis, unspecified site; M54.5 Low back pain; M54.16 Radiculopathy, lumbar region
CPT/HCPCS: 97124

== ENCOUNTER → 2020-05-06 10:49 | Outpatient (CLI) | payer OTHER, SELFPAY ==
--- NOTE | 2020-05-06 10:55 | BD_ITS ---
STUDY: DUAL ENERGY X-RAY ABSORPTIOMETRY / DXA REASON FOR EXAM: Female, 65 years old. HALL PORTER -- HX OF HRT -- TAKES MULTIVITAMIN -- DOES MODERATE AMOUNT OF EXERCISE -- FAMILY HX OF OSTEO- GRANDMOTHER -- HX OF LEFT HIP REPLACEMENT -- GEMA OF 2 INCHES TECHNIQUE: Bone Mineral Density (BMD) measurements of lumbar spine and right hip were obtained. COMPARISON: Comparison is made with prior examination dated 05/06/2011. FINDINGS: Lumbar Spine (L1-L4): g/cm2 (1.410) / T-score (2.0) / Z-score (3.6) Findings are suggestive of normal bone density with a low fracture risk. Right Femur Total: g/cm2 (0.794) / T-score (-1.7) / Z-score (-0.5) Right Femoral Neck: g/cm2 (0.719) / T-score (-2.3) / Z-score (-0.8) The T-Scores on the most recent prior examination were: Lumbar Spine (L1-L4): There has been improvement of bone density since the previous examination. Right Femur Total: which represents a worsening of 11.3%. BD/Dexa Bone Density Study IMPRESSION: The patient is considered osteopenic as outlined below according to World Evert Organization (WHO) criteria with a high fracture risk. There has been improvement of bone density since the previous examination. Reference Information: The T-score is the number of standard deviations above or below the standard which is normal for young adults at their peak bone mineral density. The World Health Organization (WHO) interprets the T-scores as follows: Above -1 Normal bone density Between -1 and -2.5 Osteopenia Equal to / or below -2.5 Osteoporosis As a practical clinical guideline, osteopenia may be graded as follows: Mild -1 through -1.5 Moderate -1.6 through -2.0 Severe -2.1 through -2.4 The Z-score is the number of standard deviations above or below age-matched controls. A Z-score of less than -1.5 would be considered abnormal. References: 1. NIH Osteoporosis and Related Bone Diseases http://www.osteo.org 2. International Society for Clinical Densitometry http://www.iscd.org 3. National Osteoporosis Foundation http://www.nof.org Electronically Signed: Luke Marcus, at 10:57 EDT , Service support ,
== END ==
PROVIDERS: PCP Internal Medicine; Referring Provider Clinical Nurse Specialist; Visit Provider Clinical Nurse Specialist
DX: Z13.820 Encounter for screening for osteoporosis (principal); Z78.0 Asymptomatic menopausal state; M85.80 Other specified disorders of bone density and structure, unspecified site
CPT/HCPCS: 77080

== ENCOUNTER → 2020-12-24 12:31 | Outpatient (CLI) | payer MEDICARE, SELFPAY ==
--- NOTE | 2020-12-24 12:37 | BI_ITS ---
MAMMOGRAPHY - BILATERAL SCREENING REASON FOR EXAM: Female, 65 years old. Routine annual screening examination. PERTINENT HISTORY: Non-contributory. TECHNIQUE: Digital bilateral breast silvia (3D mammographic acquisition) in the CC and MLO projections. 2-D mediolateral oblique (MLO) and craniocaudad (CC) views of both breasts were obtained. CAD: Full Field Digital Mammography with Computer Added Detection was performed. COMPARISON: Comparison is made with prior study of 11/12/2019 and 10/20/2017. FINDINGS: Breast Composition: There are scattered areas of fibroglandular density. There are no dominant masses or suspicious calcifications. No other significant abnormalities are identified. There has been no significant change since the prior study. BI/SCRN MAMM (CAD)W/SILVIA BILAT IMPRESSION: Stable bilateral screening mammogram. Yearly follow-up mammogram recommended. (A) ASSESSMENT CATEGORY: BIRADS Category 1: Negative. A letter regarding these results will be sent to the patient by the facility within 30 days. Approximately 10% of breast cancers are not detected by mammography. A normal mammogram should not delay biopsy of a clinically suspicious abnormality. [id number] Electronically Signed: Luke Marcus MD at 14:15 EDT , Service support ,
== END ==
PROVIDERS: PCP Internal Medicine; Referring Provider Internal Medicine; Visit Provider Internal Medicine
DX: Z12.31 Encounter for screening mammogram for malignant neoplasm of breast (principal)
CPT/HCPCS: 77063; 77067